=== PATIENT | female | born 1945 | race Caucasian/White ===

== ENCOUNTER 2017-05-20 17:48 | Emergency (ER) | payer OTHER ==
[~2017-05-20] VITALS: Ht 152.4 cm; Wt 56.7 kg
[~2017-05-20 17:48] MED LIST: ATIVAN1 MG; AVALIDE 150/12.1 TAB PO; CATAPRES0.1 MG; CEFTIN250 MG/5 M PO; CLONAZEPAM2 MG; CLONIDINE1 EAC1; GLIMEPIRIDE1 MG; PEPCID40 MG; PEPCID40 MG PO; ZOFRAN4 MG PO
== END 2017-05-20 21:45 | disposition home or self-care (01) ==
LOC: ER 17:48
DX: K29.70 Gastritis, unspecified, without bleeding (principal)

== ENCOUNTER 2017-05-22 22:15 | Emergency (ER) | payer OTHER ==
[~2017-05-22] VITALS: Ht 157.5 cm; Wt 54.4 kg
== END 2017-05-23 01:21 | disposition left against medical advice (07) ==
LOC: ER 22:15
DX: Z53.20 Procedure and treatment not carried out because of patient's decision for unspecified reasons (principal)

== ENCOUNTER 2017-05-23 20:34 | Emergency (ER) | payer OTHER ==
[~2017-05-23] VITALS: Ht 152.4 cm; Wt 54.4 kg
== END 2017-05-23 21:48 | disposition home or self-care (01) ==
LOC: ER 20:34
DX: M54.89 Other dorsalgia (principal)

== ENCOUNTER 2017-05-26 20:07 | Emergency (ER) | payer OTHER ==
[~2017-05-26] VITALS: Ht 157.5 cm; Wt 54.4 kg
[2017-05-26] MEDS ORDERED: ZOFRAN8 MG PO (21:33)
[2017-05-26] MEDS ORDERED: ULTRACET PO (21:33)
[2017-05-26] MEDS ORDERED: PEPCID20 MG PO (21:33)
[2017-05-26] MEDS ORDERED: KETO10TA2 PO (21:33)
== END 2017-05-26 21:38 | disposition home or self-care (01) ==
LOC: ER 20:07
DX: R53.1 Weakness (principal); M54.89 Other dorsalgia

== ENCOUNTER 2017-08-30 00:16 | Emergency (ER) | payer OTHER ==
[~2017-08-30] VITALS: Ht 160 cm; Wt 45.4 kg
[~2017-08-30 00:16] MED LIST changes: +KETO10TA2 PO; +PEPCID20 MG PO; +ULTRACET PO; +ZOFRAN8 MG PO
== END 2017-08-30 07:14 | disposition home or self-care (01) ==
LOC: ER 00:16
DX: K29.70 Gastritis, unspecified, without bleeding (principal)